=== PATIENT | female | born 1960 | race Caucasian/White ===

== ENCOUNTER 2022-11-03 11:18 | Outpatient (AMB) | payer OTHER, SELFPAY ==
--- NOTE | 2022-11-03 11:20 | MHC.PC.OV ---
Vital Signs 11/03/22 11:22 Height 5 ft 4 in Weight 144 lb BMI 24.7 BP 110/68 Blood Pressure Location Lt brachial Position Sitting Pulse 53 Pulse Source Pulse Oximeter Pulse Oximetry (%) 98 Oxygen Delivery Method Room Air Intake Visit Reasons: 6 week follow up Allergies No Known Allergies Allergy (Verified 11/03/22 11:22) Medication List - Last Reconciled 11/03/22 by Park Singh MD amlodipine 5 mg PO DAILY dicyclomine 20 mg PO .four times a day PRN famotidine 20 mg PO BEDTIME hydromorphone 2 mg PO Q6H PRN lidocaine-prilocaine 2.5-2.5 % grams topical DIRECTED methadone 60 mg PO DAILY ondansetron HCl 8 mg PO Q8H PRN polyethylene glycol 3350 (Miralax) 17 grams PO DAILY Tobacco use date assessed: 09/23/22 HPI 6 week follow up HPI Details Pt presents for f/u HTN, better on 5 mg of Amlodipine. Patient has been getting chemotherapy for metastatic rectal CA. PFSH Family History Sister Substance use disorder Social History Housing: House Patient Tobacco Use Status: Never used Tobacco e-Cigarette/Vaping Use: Never Used service: No Current occupational status: unemployed Cognitive needs: No Hearing needs: No Vision needs: Yes Questionnaire Thrive Questionnaire Date Thrive assessed: 04/15/22 ALEXIS-7 AMB Questionnaire ALEXIS-7 Date ALEXIS - 7 assessed: 04/15/22 Source: Developed by Drs. Claus Hammond, Debra Núñez, Wiley Esteban and colleagues, with an educational cole from [employer]. Review of Systems Const All systems reviewed & are unremarkable except as noted in HPI and below Reports no additional complaints Eyes Reports no additional complaints ENT Reports no additional complaints Card Reports no additional complaints Resp Reports no additional complaints GI Reports no additional complaints Reports no additional complaints Physical exam (Primary Care) Vital Signs: Last Vital Signs Pulse 53 11/03/22 11:22 BP 110/68 11/03/22 11:22 Pulse Ox 98 11/03/22 11:22 Oxygen Delivery Method Room Air 11/03/22 11:22 BMI result Body Mass Index 24.7 Tobacco/Smoking Status: Tobacco use Status Tobacco use date assessed 09/23/22 11/03/22 11:24 Patient Tobacco Use Status Never used Tobacco 11/03/22 11:24 e-Cigarette/Vaping Use Never Used 11/03/22 11:24 Thrive Assessment: Date of Thrive Assessment Date Thrive assessed 04/15/22 11/03/22 11:24 Const General: no acute distress HENMT Face and sinus: Yes normal facial exam Neck Neck: Yes supple Resp Effort & Inspection: normal respiratory effort Auscultation: clear to auscultation bilaterally Cardio Rhythm: regular rhythm Heart sounds: S1 normal heart sound present and S2 normal heart sound present GI Inspection: Yes normal to inspection Palpation (GI): Soft to palpation Percussion: Yes normal to percussion Auscultation: normal bowel sounds Assessment and Plan Assessment & Plan (1) HTN (hypertension): Code(s): I10 - Essential (primary) hypertension Plan: Continue amlodipine low sodium diet, follow-up in 6 months (2) Rectal cancer: Comment: dxd Feb 2022, stage 4, on Chemo [facility] Code(s): C20 - Malignant neoplasm of rectum Plan: Follow-up with oncology Medications: New amlodipine 5 mg PO DAILY 90 tabs 3RF amlodipine 5 mg PO DAILY 90 tabs 3RF Coding Level of Care Code Est Pt Level 3 (14899) Diagnoses HTN (hypertension) I10 Rectal cancer C20
[2022-11-03 11:22] VITALS: BP 110/68; PULSE 53; O2SAT 98; BMI 24.7
== END 2022-11-03 11:55 | disposition home or self-care (01) ==
PROVIDERS: PCP Internal Medicine; Visit Provider Internal Medicine
DX: I10 Essential (primary) hypertension (principal); C20 Malignant neoplasm of rectum
CPT/HCPCS: 99213

== ENCOUNTER 2023-05-13 11:08 | Outpatient (AMB) | payer OTHER, SELFPAY ==
[2023-05-13 11:24] VITALS: BP 124/66; PULSE 69; O2SAT 99; BMI 28.0
--- NOTE | 2023-05-13 11:24 | MHC.PC.OV ---
Vital Signs 05/13/23 11:24 Height 5 ft 4 in Weight 163 lb BMI 28.0 BP 124/66 Blood Pressure Location Lt brachial Position Sitting Pulse 69 Pulse Source Pulse Oximeter Pulse Oximetry (%) 99 Oxygen Delivery Method Room Air Intake Visit Reasons: Annual PE Intake Note: Pt is here today for PE. Allergies No Known Allergies Allergy (Verified 05/13/23 11:26) Tobacco use date assessed: 05/13/23 Dental Screening Dental Screen Date: 05/13/23 Did you have a dental visit in the last 12 months?: Yes Did you have a dental problem in the last 6 months where you did not have access to dental care?: No Was dental information given to patient?: Patient has dentist HPI Annual PE HPI Details Patient presents for physical. She follows up with [facility] for stage IV colon cancer undergoing treatment. PFSH Family History Sister Substance use disorder Social History Housing: House Patient Tobacco Use Status: Never used Tobacco e-Cigarette/Vaping Use: Never Used service: No Current occupational status: unemployed Cognitive needs: No Hearing needs: No Vision needs: Yes Questionnaire PHQ-9 Over the last 2 weeks, how often have you been bothered by any of the following problems? 1. Little interest or pleasure in doing things: not at all 2. Feeling down, depressed, or hopeless: not at all 3. Trouble falling or staying asleep, or sleeping too much: not at all 4. Feeling tired or having little energy: more than half the days 5. Poor appetite or overeating: more than half the days 6. Feeling bad about yourself - or that you are a failure or have let yourself or your family down: not at all 7. Trouble concentrating on things, such as reading the newspaper or watching television: more than half the days 8. Moving or speaking so slowly that other people could have noticed. Or the opposite - being so fidgety or restless that you have been moving around a lot more than usual: not at all 9. Thoughts that you would be better off or of hurting yourself in some way: not at all Total score: 6 Depression Screening Interpretation: Negative Depression Screening Done: Yes Source: Developed by Drs. Claus Hammond, Wiley Tamez and colleagues, with an educational cole from [employer]. Thrive Questionnaire Date Thrive assessed: 05/13/23 I am a: Patient What is your living situation today?: I have a steady place to live Within the past 12 months, did the food you bought not last and you didn't have the money to get more?: Never true Within the past 12 months, did you worry whether your food would run out before you got money to buy more?: Never true Do you have trouble paying for medicines?: No Do you have trouble getting transportation to medical appointments?: No Do you have trouble paying your heating and electricity bill?: No Do you have trouble taking care of your child, family member or friend?: No Do you have trouble with day-to-day activities such as bathing, preparing meals, shopping, managing finances, etc.?: No Are you currently unemployed and looking for a job?: No Are you interested in more education?: No Please select the resources that you would like help with: None Currently or been in a relationship where the following occur: no concerns reported THRIVE Score: 0 AUDIT C Alcohol Use Questionnaire (AUDIT-C) 1. How often do you have a drink containing alcohol?: Never 3. How often do you have six or more drinks on one occasion?: Never Total Score: 0 ALEXIS-7 AMB Questionnaire ALEXIS-7 Date ALEXIS - 7 assessed: 05/13/23 Feeling nervous, anxious, or on edge: 0 = Not at all Not being able to stop or control worryin = Not at all Worrying too much about different things: 0 = Not at all Trouble relaxin = Not at all Being so restless that it is hard to sit still: 0 = Not at all Becoming easily annoyed or irritable: 0 = Not at all Feeling afraid as if something awful might happen: 0 = Not at all Total ALEXIS-7 score (0-4 normal; 5-9 mild; 10-14 moderate; 15-21 severe): 0 Source: Developed by Drs. Claus Hammond, Wiley Tamez and colleagues, with an educational cole from [employer]. Review of Systems Const All systems reviewed & are unremarkable except as noted in HPI and below Reports no additional complaints Eyes Reports no additional complaints ENT Reports no additional complaints Card Reports no additional complaints Resp Reports no additional complaints GI Reports no additional complaints Reports no additional complaints Physical exam (Primary Care) Vital Signs: Last Vital Signs Pulse 69 05/13/23 11:24 BP 124/66 05/13/23 11:24 Pulse Ox 99 05/13/23 11:24 Oxygen Delivery Method Room Air 05/13/23 11:24 BMI result Body Mass Index 28.0 Tobacco/Smoking Status: Tobacco use Status Tobacco use date assessed 05/13/23 05/13/23 11:31 Patient Tobacco Use Status Never used Tobacco 05/13/23 11:31 e-Cigarette/Vaping Use Never Used 05/13/23 11:31 Depression Screening Interpretation: Negative Thrive Assessment: Date of Thrive Assessment Date Thrive assessed 04/15/22 05/13/23 11:31 Currently or been in a relationship where the following occur: no concerns reported Const General: no acute distress HENMT Head: Yes normal to inspection Ears: hearing grossly normal bilaterally Face and sinus: Yes normal facial exam Eyes General: appearance normal, both eyes and all related structures Neck Neck: Yes no lymphadenopathy and Yes supple Resp Effort & Inspection: normal respiratory effort Auscultation: clear to auscultation bilaterally Cardio Rhythm: regular rhythm Heart sounds: S1 normal heart sound present and S2 normal heart sound present GI Inspection: Yes normal to inspection Palpation (GI): Soft to palpation Percussion: Yes normal to percussion Auscultation: normal bowel sounds Assessment and Plan Assessment & Plan (1) HTN (hypertension): Code(s): I10 - Essential (primary) hypertension Plan: Continue amlodipine (2) Rectal cancer: Comment: dxd Feb 2022, stage 4, on Chemo [facility] Code(s): C20 - Malignant neoplasm of rectum Plan: Follow-up with oncology at [facility] (3) Annual physical exam: Code(s): Z00.00 - Encounter for general adult medical examination without abnormal findings Plan: Well-balanced diet regular physical activity discussed with the patient, return in 1 year or prn Coding Level of Care Code Est Pt Prev Care 40-64y(59759) Diagnoses HTN (hypertension) I10 Rectal cancer C20 Annual physical exam Z00.00
== END 2023-05-13 12:28 | disposition home or self-care (01) ==
PROVIDERS: PCP Internal Medicine; Visit Provider Internal Medicine
DX: I10 Essential (primary) hypertension (principal); C20 Malignant neoplasm of rectum; Z00.00 Encounter for general adult medical examination without abnormal findings
CPT/HCPCS: 99396